=== PATIENT | female | born 1970 | race Caucasian/White ===

== ENCOUNTER 2019-01-30 14:48 | Emergency (ER) | payer OTHER ==
[~2019-01-30] VITALS: Ht 152.4 cm; Wt 64.4 kg
== END 2019-01-30 18:24 | disposition home or self-care (01) ==
LOC: ER 14:48
DX: S60.011A Contusion of right thumb without damage to nail, initial encounter (principal); W20.8XXA Other cause of strike by thrown, projected or falling object, initial encounter; Y93.89 Activity, other specified; Y92.89 Other specified places as the place of occurrence of the external cause; Y99.8 Other external cause status

== ENCOUNTER 2019-06-24 12:12 | Emergency (ER) | payer OTHER ==
[~2019-06-24] VITALS: Ht 157.5 cm; Wt 59.0 kg
== END 2019-06-24 14:22 | disposition home or self-care (01) ==
LOC: ER 12:12
DX: N30.81 Other cystitis with hematuria (principal)

== ENCOUNTER 2021-05-03 15:17 | Emergency (ER) | payer OTHER ==
[~2021-05-03] VITALS: Ht 154.9 cm; Wt 58.1 kg
== END 2021-05-03 20:23 | disposition home or self-care (01) ==
LOC: ER 15:17
DX: S00.83XA Contusion of other part of head, initial encounter (principal); W22.8XXA Striking against or struck by other objects, initial encounter; Y93.89 Activity, other specified; Y92.89 Other specified places as the place of occurrence of the external cause; Y99.8 Other external cause status

== ENCOUNTER 2021-09-26 10:40 | Emergency (ER) | payer OTHER ==
[~2021-09-26] VITALS: Ht 154.9 cm; Wt 58.1 kg
== END 2021-09-26 14:59 | disposition home or self-care (01) ==
LOC: ER 10:40
DX: B34.9 Viral infection, unspecified (principal); Z20.822 Contact with and (suspected) exposure to COVID-19; Z91.013 Allergy to seafood; Z91.018 Allergy to other foods

== ENCOUNTER 2021-10-14 13:19 | Emergency (ER) | payer OTHER ==
[~2021-10-14] VITALS: Ht 157.5 cm; Wt 56.7 kg
== END 2021-10-14 22:23 | disposition home or self-care (01) ==
LOC: ER 13:19
DX: J45.901 Unspecified asthma with (acute) exacerbation (principal); J06.9 Acute upper respiratory infection, unspecified; Z20.822 Contact with and (suspected) exposure to COVID-19

== ENCOUNTER 2021-11-07 17:14 | Emergency (ER) | payer OTHER ==
[~2021-11-07] VITALS: Ht 157.5 cm; Wt 57.2 kg
[2021-11-07] MEDS ORDERED: PROVENTIL HFA6.7 GM IH (18:01)
== END 2021-11-07 21:26 | disposition home or self-care (01) ==
LOC: ER 17:14
DX: J10.1 Influenza due to other identified influenza virus with other respiratory manifestations (principal); R53.81 Other malaise; I10 Essential (primary) hypertension; Z20.822 Contact with and (suspected) exposure to COVID-19

== ENCOUNTER 2022-05-17 08:31 | Emergency (ER) | payer OTHER ==
[~2022-05-17] VITALS: Ht 157.5 cm; Wt 59.0 kg
[~2022-05-17 08:31] MED LIST: PROVENTIL HFA6.7 GM IH
[2022-05-17] MEDS ORDERED: OSEL75CA PO (12:58)
[2022-05-17] MEDS ORDERED: TUSSIN DM SYRU118 ML PO (12:58)
== END 2022-05-17 13:09 | disposition home or self-care (01) ==
LOC: ER 08:31
DX: B34.9 Viral infection, unspecified (principal); Z91.013 Allergy to seafood; Z91.018 Allergy to other foods; Z20.822 Contact with and (suspected) exposure to COVID-19

== ENCOUNTER 2022-08-22 13:07 | Emergency (ER) | payer OTHER ==
[~2022-08-22] VITALS: Ht 157.5 cm; Wt 65.3 kg
[~2022-08-22 13:07] MED LIST changes: +OSEL75CA PO; +TUSSIN DM SYRU118 ML PO
== END 2022-08-22 20:16 | disposition home or self-care (01) ==
LOC: ER 13:07
DX: R05.8 Other specified cough (principal); R53.81 Other malaise; Z20.822 Contact with and (suspected) exposure to COVID-19; Z91.018 Allergy to other foods; Z91.013 Allergy to seafood

== ENCOUNTER 2023-01-25 05:44 | Emergency (ER) | payer OTHER ==
[~2023-01-25] VITALS: Ht 154.9 cm; Wt 59.9 kg
== END 2023-01-25 11:29 | disposition home or self-care (01) ==
LOC: ER 05:44
PROVIDERS: General Practice
DX: R05.9 Cough, unspecified (principal); R53.81 Other malaise; Z88.8 Allergy status to other drugs, medicaments and biological substances; Z87.09 Personal history of other diseases of the respiratory system; J06.9 Acute upper respiratory infection, unspecified

== ENCOUNTER 2023-02-27 17:04 | Emergency (ER) | payer OTHER ==
[~2023-02-27] VITALS: Ht 157.5 cm; Wt 62.6 kg
[2023-02-27] MEDS ORDERED: SINGULAIR10 MG PO (17:18)
[2023-02-27] MEDS ORDERED: CRESTOR5 MG PO (17:18)
[2023-02-27 21:44] LABS: HEMATOCRIT 39.4 % (36.0-45.00); HEMOGLOBIN 13.6 g/dL (12.0-15.00); MEAN CORPUSCULAR HEMOGLOBIN 29.1 pg (27.00-32.0); MEAN CORPUSCULAR HGB CONC 34.6 g/dl (32.0-36.0); PLATELET COUNT 339 K/uL (150-450); RED BLOOD COUNT 4.69 M/uL (4.00-6.00)
== END 2023-02-27 22:37 | disposition home or self-care (01) ==
LOC: ER 17:04
PROVIDERS: General Practice
DX: R53.81 Other malaise (principal); J45.909 Unspecified asthma, uncomplicated; Z20.822 Contact with and (suspected) exposure to COVID-19; Z91.013 Allergy to seafood; Z91.018 Allergy to other foods

== ENCOUNTER 2023-04-19 05:17 | Emergency (ER) | payer OTHER ==
[~2023-04-19] VITALS: Ht 157.5 cm; Wt 62.6 kg
[~2023-04-19 05:17] MED LIST changes: +CRESTOR5 MG PO; +SINGULAIR10 MG PO
[2023-04-19 06:31] LABS: HEMATOCRIT 38.4 % (36.0-45.00); HEMOGLOBIN 13.3 g/dL (12.0-15.00); MEAN CELL VOLUME 85.3 fL (80.00-100.00); MEAN CORPUSCULAR HEMOGLOBIN 29.5 pg (27.00-32.0); MEAN CORPUSCULAR HGB CONC 34.6 g/dl (32.0-36.0); PLATELET COUNT 324 K/uL (150-450); RED CELL DISTRIBUTION WIDTH 12.6 % (11.5-14.5)
== END 2023-04-19 09:50 | disposition home or self-care (01) ==
LOC: ER 05:18
PROVIDERS: General Practice
DX: J45.901 Unspecified asthma with (acute) exacerbation (principal); Z20.822 Contact with and (suspected) exposure to COVID-19; Z91.013 Allergy to seafood; Z91.018 Allergy to other foods

== ENCOUNTER 2023-06-04 13:12 | Outpatient (CLI) | payer OTHER | END 2023-06-04 13:17 | disposition home or self-care (01) | LOC: NUCLEAR 13:12 | PROVIDERS: ATTEND Internal Medicine | DX: M81.0 Age-related osteoporosis without current pathological fracture (principal) ==

== ENCOUNTER 2023-11-29 09:53 | Emergency (ER) | payer OTHER ==
[~2023-11-29] VITALS: Ht 157.5 cm; Wt 62.6 kg
[2023-11-29] MEDS ORDERED: METHYLPREDNISOLONE SOD SUCC 125 MG VIAL IV ONE (10:15)
[2023-11-29] MEDS ORDERED: ALBUTEROL SULFATE 3 ML/2.5 MG AMPUL.NEB IH SCH (10:15)
[2023-11-29 11:08] LABS: ABG PO2 53.6 mmHg (80-100); BASE EXCESS 0.9 mmol/l; BICARBONATE 25.3 mmol/l (23-25); SaO2 88.2 %; Tco2 26.6 mmol/l; allen test SATISFACTORY; o2 21 %; puncture site RADIAL RIGHT
[2023-11-29 11:11] LABS: HEMATOCRIT 40.3 % (36.0-45.00); HEMOGLOBIN 13.8 g/dL (12.0-15.00); MEAN CELL VOLUME 85.6 fL (80.00-100.00); MEAN CORPUSCULAR HEMOGLOBIN 29.4 pg (27.00-32.0); MEAN CORPUSCULAR HGB CONC 34.3 g/dl (32.0-36.0); PLATELET COUNT 305 K/uL (150-450); RED BLOOD COUNT 4.71 M/uL (4.00-6.00); RED CELL DISTRIBUTION WIDTH 12.4 % (11.5-14.5)
== END 2023-11-29 16:32 | disposition home or self-care (01) ==
LOC: ER 09:55
PROVIDERS: Emergency Medicine
DX: J45.909 Unspecified asthma, uncomplicated (principal); Z91.013 Allergy to seafood; Z91.018 Allergy to other foods

== ENCOUNTER 2023-12-24 10:12 | Emergency (ER) | payer OTHER ==
[~2023-12-24] VITALS: Ht 157.5 cm; Wt 62.6 kg
[2023-12-24] MEDS ORDERED: KETOROLAC TROMETHAMINE 30 MG VIAL IM STA (11:10)
[2023-12-24 12:21] LABS: HEMATOCRIT 38.2 % (36.0-45.00); HEMOGLOBIN 13.1 g/dL (12.0-15.00); MEAN CORPUSCULAR HEMOGLOBIN 29.2 pg (27.00-32.0); MEAN CORPUSCULAR HGB CONC 34.4 g/dl (32.0-36.0); PLATELET COUNT 319 K/uL (150-450); RED CELL DISTRIBUTION WIDTH 12.7 % (11.5-14.5)
== END 2023-12-24 13:17 | disposition home or self-care (01) ==
LOC: ER 10:13
PROVIDERS: General Practice
DX: R21 Rash and other nonspecific skin eruption (principal); Z90.13 Acquired absence of bilateral breasts and nipples; Z91.018 Allergy to other foods; M50.321 Other cervical disc degeneration at C4-C5 level

== ENCOUNTER 2024-05-22 20:32 | Emergency (ER) | payer OTHER ==
[~2024-05-22] VITALS: Ht 157.5 cm; Wt 59.0 kg
[2024-05-22 20:56] VITALS: BP 113/83; O2SAT 96
[2024-05-22] MEDS ORDERED: CEFTRIAXONE SODIUM 1,000 MG VIAL ONE (21:12)
[2024-05-22] MEDS ORDERED: METHYLPREDNISOLONE SOD SUCC 40 MG VIAL ONE (21:12)
[2024-05-22] MEDS ORDERED: MAGNESIUM SULFATE IN WATER 2 GM/50 ML PIGGYBAG IV ONE (21:15)
[2024-05-22] MEDS ORDERED: IPRATROPIUM/ALBUTEROL SULFATE 3 ML AMPUL.NEB IH ONE ×2 (21:15→23:42)
[2024-05-22] MEDS ORDERED: CEFTRIAXONE SODIUM 1,000 MG VIAL IM ONE (21:15)
[2024-05-22] MEDS ORDERED: METHYLPREDNISOLONE SOD SUCC 40 MG VIAL IM ONE (21:15)
[2024-05-22 22:10] LABS: HEMATOCRIT 40.6 % (36.0-45.00); HEMOGLOBIN 13.7 g/dL (12.0-15.00); MEAN CELL VOLUME 86.9 fL (80.00-100.00); MEAN CORPUSCULAR HEMOGLOBIN 29.2 pg (27.00-32.0); MEAN CORPUSCULAR HGB CONC 33.6 g/dl (32.0-36.0); PLATELET COUNT 329 K/uL (150-450); RED BLOOD COUNT 4.68 M/uL (4.00-6.00); RED CELL DISTRIBUTION WIDTH 12.3 % (11.5-14.5)
[2024-05-22] MEDS ORDERED: PEPCID AC20 MG PO (23:40)
[2024-05-22] MEDS ORDERED: MEDROLPACK PO (23:40)
[2024-05-22] MEDS ORDERED: ZITHROMAX500 MG PO (23:40)
[2024-05-22] MEDS ORDERED: LEVALBUTER0.63 MG/3 IH (23:40)
== END 2024-05-23 00:16 | disposition home or self-care (01) ==
LOC: ER 20:34
PROVIDERS: General Practice
DX: J45.909 Unspecified asthma, uncomplicated (principal); Z20.822 Contact with and (suspected) exposure to COVID-19; Z91.013 Allergy to seafood; Z91.018 Allergy to other foods

== ENCOUNTER 2024-07-22 22:09 | Emergency (ER) | payer OTHER ==
[~2024-07-22] VITALS: Ht 157.5 cm; Wt 59.0 kg
[~2024-07-22 22:09] MED LIST changes: +LEVALBUTER0.63 MG/3 IH; +MEDROLPACK PO; +PEPCID AC20 MG PO; +ZITHROMAX500 MG PO
[2024-07-23] MEDS ORDERED: GUAIFENESIN 200 MG/10 ML BLIST.PACK PO STA (00:53)
[2024-07-23] MEDS ORDERED: METHYLPREDNISOLONE SOD SUCC 125 MG VIAL IV STA (00:53)
[2024-07-23] MEDS ORDERED: ALBUTEROL SULFATE 3 ML/2.5 MG AMPUL.NEB IH SCH (01:00)
[2024-07-23] MEDS ORDERED: ALBUTEROL2.5 MG/3 M IH (03:47)
[2024-07-23] MEDS ORDERED: ZYNCOF 20-400120 ML PO (03:47)
[2024-07-23] MEDS ORDERED: BUDESONIDE0.5 MG/2 M IH (03:47)
== END 2024-07-23 03:56 ==
LOC: ER 22:12
DX: J45.909 Unspecified asthma, uncomplicated (principal); Z91.013 Allergy to seafood; Z91.018 Allergy to other foods